=== PATIENT | male | born 1980 | race Caucasian/White ===

== ENCOUNTER → 2018-04-27 | Emergency (ER) | payer OTHER ==
[~2018-04-27] VITALS: Ht 167.6 cm; Wt 90.7 kg
[~2018-04-27] MED LIST: HUMULIN 70100 UNIT/2 IJ; INDAPAMIDE1.25 MG PO; LANTUS SOL100 UNIT/1 SQ; LOSARTAN-HCTZ1 EAC2 PO
== END | disposition designated cancer center or children's hospital (05) ==
LOC: ER 15:37
DX: N49.3 Fournier gangrene (principal)